=== PATIENT | female | born 1990 ===

== ENCOUNTER 2017-09-26 14:43 | Emergency (ER) | payer MEDICAID ==
[2015-12-29 09:08] VITALS: BMI 38.2
[2017-09-26 23:51] VITALS: BP 135/81; PULSE 103; RESP 18; TEMP 98.8; O2SAT 100
--- NOTE | 2017-09-27 09:12 | OBHP ---
Datetime: 09/26/2017 15:58 IP Adm Impression: Term, intrauterine IP Admit Plan: Observation/Evaluation Admit Comment, IP Provider: PT is 27 yo f 38.3wk uncomplicated , present to [facility] due t o vaginal bleed that started yesterday. Pt state that the bleeding started after she had a vaginal sw eep yesterday in her doctor office. Pt called the doctor today and she state that the bleeding persis t, and the doctor instruct her to go to [facility]. Pt have no other complain, she state she have irregular contraction but denies fluid loss, consistent contraction, abd pain, worsenes vaginal bleed. Pt ruma es fall/trauma, fever,chill, headache, chestpain, abd pain, dysuria or polyuria. Allergy none Med: none PMH: None PSh: none ob hx: 2 NVD at 36 and 37 wk, no complication social: no smoke/drink or use drugs ROS: All pertinent negative except HPI 16:00 Assessment: PT is 27 yo f 38.3wk uncomplicated , present to [facility] due to vaginal bleed that start ed yesterday. Pt is not acute distress vital wnl strip wnl Cervix 2 cm dialated, not in labor no contraction noted Plan Monitor for exacerbation monitor vitals and strip 17:53 Reassessment Pt is lying comfortable with no acute distress pt denies any symptoms Pt ready to go home Plan Pt will be discharged home Pt educated about vaginal bleed Encourage pt to come to ER if bleed exacerbate/notice gush of fluid/ increase contraction come to ER Case discussed with Dr Choudhary Writen by Martha PGY1 Pelvic Type - PN: Adequate Extremities - PN: Normal Abdomen - PN: Normal Back - PN: Not Done Breast - PN: Not Done Lungs - PN: Normal Heart - PN: Normal Thyroid - PN: Normal Neurologic - PN: Normal HEENT - PN: Normal General - PN: Normal Presentation-Admit: Vertex FHR - Baseline A Provider: 140 Comments, ACOG Physical Exam: PT is not acute distress, she is lying on bed comfortable Cardio: s1/s2 heard no extra heartsound lung: clear in all quadrant abd: bs +, nontender extremities: no pedal edema noted Pelvis: 2 cm dialated Gestation - Est Wks by US: 38.3 Vital Signs Provider: Reviewed; Within Normal Limits IP Chief Complaint: Vaginal bleeding NICHD Variability Prov Fetus A: Moderate 6-25bpm NICHD Accel Fetus A IP Provider: [id number] NICHD Decel Fetus A IP Provider: None Dilatation, Provider: 2 Genitourinary Exam: Not Done DTRs - PN: Not Done
== END 2017-09-26 17:50 | disposition home or self-care (01) ==
LOC: H.EROB2 14:43
DX: O47.1 False labor at or after 37 completed weeks of gestation (principal); O46.93 Antepartum hemorrhage, unspecified, third trimester; O26.93 Pregnancy related conditions, unspecified, third trimester; R10.2 Pelvic and perineal pain; Z3A.38 38 weeks gestation of pregnancy

== ENCOUNTER 2017-09-28 11:18 | Emergency (ER) | payer MEDICAID ==
[2015-12-29 09:08] VITALS: BMI 38.2
--- NOTE | 2017-09-30 07:45 | OBHP ---
Datetime: 09/28/2017 12:32 IP Adm Impression: Term, intrauterine IP Admit Plan: Observation/Evaluation Admit Comment, IP Provider: PT is 27 yo f 38.5wk uncomplicated , present to [facility] due t o vaginal bleed and contraction that started at 4:30 am. Pt stated that contraction were regular with back and pelvic pain, but inconsistent . Pt state that she came 2 days ago due vaginal bleed after doctor had done a vaginal sweep. Pt was checked she was 2cm dilated with no contraction, and was sent home. Pt have no other complain, Pt denies fluid loss, worsens vaginal bleed. Pt denies fall/trauma, fever, chill, headache, chest pain, dysuria or polyuria. Allergy none Med: none PMH: None PSh: none ob hx: 2 NVD at 36 and 37 wk, no complication social: no smoke/drink or use drugs ROS: All pertinent negative except HPI 12:20 Assessment: PT is 27 yo f 38.5wk uncomplicated , present to [facility] due to vaginal bleed and contra ction at 4:30 am. Pt is not acute distress vital wnl strip wnl Cervix 2 cm dilated, not in labor, very few contraction noted Plan Monitor for more consistent contraction monitor for water gush monitor vitals and strip 1:00 Reassessment Pt is not in acute distress Vital WNL Pt is not in active labor Cervix still high and 2 cm, minimal contraction present is not in distress, strip is reassuring Plan PT will be discharged home Discharge home Pt educated about Contraction, water gush, and vaginal bleed PT was advised if contraction increase or feel gush fluid, go to [facility] Case discussed with Dr Dc Writen by Martha PGY1 Addendum by Dr. Wallace: I have evaluated the patient independently and I agree with the above Pelvic Type - PN: Adequate Extremities - PN: Normal Abdomen - PN: Normal Breast - PN: Not Done Lungs - PN: Normal Heart - PN: Normal Thyroid - PN: Not Done Neurologic - PN: Normal HEENT - PN: Normal General - PN: Normal FHR - Baseline A Provider: 145 Comments, ACOG Physical Exam: Pt is lying comfortable in bed with no acute distress Cardia: s1, s2 heard no murmur or gallop no extra heart sound Lung : clear in all quadrant Abd: BS+, non tender Pelvic: dry hammond, high cervix, 2-3cm dilated, intact membrane. Gestation - Est Wks by US: 38.5 EGA AdmitDate IP: 38.5 Vital Signs Provider: Reviewed; Within Normal Limits IP Chief Complaint: Uterine contractions; Vaginal bleeding NICHD Variability Prov Fetus A: Moderate 6-25bpm NICHD Accel Fetus A IP Provider: [id number] FHR Category Provider Fetus A: Category I NICHD Decel Fetus A IP Provider: None Dilatation, Provider: 2 Genitourinary Exam: Not Done DTRs - PN: Not Done
[2017-09-30 11:46] VITALS: BP 121/83; PULSE 99
== END 2017-09-28 13:00 | disposition home or self-care (01) ==
LOC: H.EROB2 11:18
DX: O47.1 False labor at or after 37 completed weeks of gestation (principal); O26.93 Pregnancy related conditions, unspecified, third trimester; R10.2 Pelvic and perineal pain; O46.93 Antepartum hemorrhage, unspecified, third trimester; Z3A.38 38 weeks gestation of pregnancy

== ENCOUNTER 2017-09-30 23:13 | Inpatient (IN) | payer MEDICAID ==
[2017-10-01] MEDS ORDERED: Phenaphthazine-PH Test Paper VI ONE (00:08)
[2017-10-01 00:31] VITALS: BMI 39.8
[2017-10-01] MEDS ORDERED: Nalbuphine HCL 10 mg/ml Ampule IVP PRN (02:04)
[2017-10-01] MEDS ORDERED: Promethazine 25 MG in Sodium Chloride 0.9% 50 ML IVPB ONE (02:10)
[2017-10-01] MEDS: Lactated Ringer's 1,000 ML IV SCH ×2 (02:12→04:15)
[2017-10-01 04:01] LABS: BASO % 0.5 % (0.0-2.0); EOS # 0.1 K/uL (0.0-0.7); EOS % 1.1 % (0.0-4.0); HEMOGLOBIN 12.3 g/dL (12.0-16.0); LYMPH # 1.9 K/uL (1.0-4.3); LYMPH % 28.5 % (20.0-40.0); MEAN CELL VOLUME 91.7 fl (81.0-99.0); MEAN CORPUSCULAR HEMOGLOBIN 30.4 pg (27.0-31.0); MEAN CORPUSCULAR HGB CONC 33.1 g/dL (33.0-37.0); MEAN PLATELET VOLUME 11.1 fl (7.2-11.7); MONO # 0.6 K/uL (0.0-0.8); MONO % 9.1 % (0.0-10.0); NEUT # 4.1 K/uL (1.8-7.0); NEUT % 60.8 % (50.0-75.0); NRBC % 0.2 % (0.0-0.0); RBC 4.06 Mil/uL (3.80-5.20); RED CELL DISTRIBUTION WIDTH 13.8 % (11.5-14.5); WHITE BLOOD COUNT 6.7 K/uL (4.8-10.8)
[2017-10-01] MEDS ORDERED: Fentanyl/Bupivacaine HCl 250 ML EPI ONE (04:34)
--- NOTE | 2017-10-01 05:53 | OBADHP ---
Datetime: 10/01/2017 05:51 Admit Comment, IP Provider: OB Hospitalist Addendum: 27 yo at 39+2 wks c/p a lot of pain al l week received nubaine and phenergan and progressed and is now complete and pushing. Pt was admitte d to L_D. (ES) Abdomen - PN: Normal Back - PN: Normal Lungs - PN: Normal Heart - PN: Normal General - PN: Normal FHR - Baseline A Provider: 140s Amniotic Fluid Color, Provider: Bloody Membranes, Provider: Ruptured IP Chief Complaint: Uterine contractions NICHD Variability Prov Fetus A: Moderate 6-25bpm Dilatation, Provider: 10 Effacement, Provider: 100 Station, Provider: -1 Genitourinary Exam: Normal EGA AdmitDate IP: 39.1 IP Adm Impression: Term, intrauterine IP Admit Plan: Admit to unit; Initiate labor protocol Datetime: 10/01/2017 00:18 Comments, ACOG Physical Exam: GEN: NAD HEENT: Normocephalic, EOMI RESP: CTA bilateral CV: RRR,S1 S2 present , no murmurs noted ABD: Gravid, Soft, no tenderness to palpation. LE: No edema Pelvic Exam speculum examination: clear mucous noted in vaginal vault, sample obtain for fern test : no ferning was seen and nitrazine paper test negative. Vital Signs Provider: Reviewed; Within Normal Limits NICHD Accel Fetus A IP Provider: [id number] FHR Category Provider Fetus A: Category I (Annotations: Data stored by CPN on behalf of user) Datetime: 09/28/2017 12:32 Pelvic Type - PN: Adequate Extremities - PN: Normal Breast - PN: Not Done Thyroid - PN: Not Done Neurologic - PN: Normal HEENT - PN: Normal Gestation - Est Wks by US: 38.5 NICHD Decel Fetus A IP Provider: None DTRs - PN: Not Done Datetime: 09/26/2017 15:58 Presentation-Admit: Vertex
[2017-10-01] MEDS ORDERED: Oxytocin 30 UNIT 30 UNITS/500 ML BAG IV ONE (06:01)
[2017-10-01] MEDS ORDERED: Benzocaine/Menthol SPRAY TOP PRN ×2 (06:29→10:13)
--- NOTE | 2017-10-01 06:30 | OBHP ---
Datetime: 10/01/2017 05:51 IP Adm Impression: Term, intrauterine IP Admit Plan: Admit to unit; Initiate labor protocol Abdomen - PN: Normal Back - PN: Normal Lungs - PN: Normal Heart - PN: Normal General - PN: Normal FHR - Baseline A Provider: 140s Amniotic Fluid Color, Provider: Bloody Membranes, Provider: Ruptured EGA AdmitDate IP: 39.1 IP Indication for Induction: Not Applicable IP Chief Complaint: Uterine contractions NICHD Variability Prov Fetus A: Moderate 6-25bpm Dilatation, Provider: 10 Effacement, Provider: 100 Station, Provider: -1 Genitourinary Exam: Normal Datetime: 10/01/2017 00:18 Admit Comment, IP Provider: HPI: 27 y/o F with EGA 39.1 weeks, EDC 10/07/17, presents to the [facility] with c/o loss of fluid that she first noticed at 10 PM, patient also reports pelvic pain that koehler s been present all week but since yesterday has increased in intensity, is intermittent, with no radi ation, she associates this pain with uterine contractions that she also reports she is having since 1 0 PM. Patient denies vaginal bleeding, trauma, dizziness, KOEHLER, blurry vision, chest pain, SOB, N/V, dy suria. Patient reports movement recently. Patient reports normal course in this curre nt . ROS: Unremarkable, except as per HPI. OBGYN: Patient is , she reports previous normal pregnancies with x2, First delivery in 2014 and second 12/2015. Menarche: 8 y/o. patient reports hx of normal Pap smears. LMP: 12/31/16, BAILEE: 10/07/17. Provider: Dr Perez. PMHx: None FMHx: None Social Hx: Denies tobacco/Rec drugs/ETOH use. SurgHx: None Allergies: Synthroid MEDS: PNV Labs: HIV negative, HBsAg negative, GBS negative as per patient's report, Rubella +/immune, GC/CL nonreactive, RPR nonreactive as per patient's report, ABORh A+, Ab negative. Assessment and plan: 27 y/o with EGA 39.1 weeks term , with no reports of complications, pres enting to EDOB with c/o LOF, pelvic pain and uterine contactions for approxiamtely 2 to 3 hours. Impression Latent labor -Observation -Hydration IVF with LR bolus, then continue LR 125 ml /hr -VS monitoring - monitoring: FHR trace monitor - biophysical prof US This case was examined and disscused with attending Dr López in the room. Ramón Uriarte MD PGY1 OB Hospitalist Addendum: 27 yo at 39+2 wks c/p a lot of pain all week, received nubaine a nd phenergan and progressed and is now complete and is pushing. Pt was admitted to L_D. () Comments, ACOG Physical Exam: GEN: NAD HEENT: Normocephalic, EOMI RESP: CTA bilateral CV: RRR,S1 S2 present , no murmurs noted ABD: Gravid, Soft, no tenderness to palpation. LE: No edema Pelvic Exam speculum examination: clear mucous noted in vaginal vault, sample obtain for fern test : no ferning was seen and nitrazine paper test negative. Vital Signs Provider: Reviewed; Within Normal Limits NICHD Accel Fetus A IP Provider: 15X15 FHR Category Provider Fetus A: Category I (Annotations: Data stored by N on behalf of user)
--- NOTE | 2017-10-01 06:42 | OBDS ---
DELIVERY PERSONNEL Delivery Doctor: Clement López MD Driver Manager: Ma. Sherly Shabazz RN Anesthesiologist: Trev Marques Resident: Kalani MATERNAL INFORMATION Delivery Anesthesia: Epidural Medications in Delivery: Pitocin Estimated Blood Loss (ml): 50 Placenta Cultured: No Maternal Complications: None Provider Comments: Pt progressed to complete and pushed to deliver a viable male through allegra r fluid at 0601. Apgars 9 and 9. Wt 3095gms, 6#13. Infant placed on mother's abdomen. Cord doubly clamped and FOB cut the cord. Cord blood collected. Placenta delivered spontaneously intact w/ a 3 vc at 0616. Right labial laceration reapproximated w/ interrupted stitches of 3-0 rapide. Left iva urethral tear reapproximated w/ a single interrupted stitch of 3-0 rapide. Pt and baby tolerated the procedure well. EBL 50mL LABOR SUMMARY EDC: 10/07/2017 00:00 No. Babies in Womb: 1 Attempted: No Labor Anesthesia: Epidural LABOR INFORMATION Reason for Induction: Not Applicable Onset of Labor: 10/01/2017 03:00 Complete Dilatation: 10/01/2017 05:30 Oxytocin: N/A Group B Beta Strep: unknown Steroids Given: None Reason Steroids Not Administered: Not Applicable MEMBRANES Membranes Rupture Method: Spontaneous Rupture of Membranes: 10/01/2017 04:48 Length of Rupture (hrs): 1.22 Amniotic Fluid Color: Clear Amniotic Fluid Amount: Moderate Amniotic Fluid Odor: Normal STAGES OF LABOR Stage 1 hrs: 2 Stage 1 min: 30 Stage 2 hrs: 0 Stage 2 min: 31 Stage 3 hrs: 0 Stage 3 min: 15 Total Time in Labor hrs: 3 Total Time in Labor min: 16 VAGINAL DELIVERY Episiotomy: None Laceration Extension: First Degree Laceration Type: Vaginal; Periurethral Other Laceration: R first deg lac, L periurethral lac Laceration Repair: Yes Initial Vag Sponge Count: 15 Final Vag Sponge Count: 15 Initial Vag Sharps Count: 2 Final Vag Sharps Count: 2 Sponge Count Correct: Yes Sharps Count Correct: Yes Count Comment: count correct BABY A INFORMATION Delivery Date/Time: 10/01/2017 06:01 Method of Delivery: Vaginal Born in Route : No : N/A Forceps: N/A Vacuum Extraction: N/A Shoulder Dystocia : No SHOULDER DYSTOCIA BABY A Delivery Date/Time: 10/01/2017 06:01 PRESENTATION/POSITION BABY A Presentation: Cephalic PLACENTA INFORMATION BABY A Placenta Delivery Time : 10/01/2017 06:16 Placenta Method of Delivery: Spontaneous Placenta Status: Delivered SCORES BABY A Heart Rate 1 min: >100 bpm Resp Effort 1 min: Good Cry Reflex Irritability 1 min: Cough or Sneeze or Pulls Away Muscle Tone 1 min: Active Motion Color 1 min: Body [place], Extremities Blue Resuscitation Effort 1 min: Tactile Stimulation SCORE 1 MIN: 9 Heart Rate 5 min: >100 bpm Resp Effort 5 min: Good Cry Reflex Irritability 5 min: Cough or Sneeze or Pulls Away Muscle Tone 5 min: Active Motion Color 5 min: Body [place], Extremities Blue Resuscitation Effort 5 min: N/A SCORE 5 MIN: 9 INFORMATION BABY A Gestational Age at Delivery: 39.1 Gestational Status: Term Outcome : Liveborn Infant Condition : Stable Sex: Male IDENTIFICATION/MEDS BABY A ID Band Number: [id number] ID Band Location: Left Leg; Left Arm WEIGHT/LENGTH BABY A Infant Birthweight (gms): 3095 Weight (lb): 6 Infant Weight (oz): 13 CORD INFORMATION BABY A No. Cord Vessels: 3 Nuchal Cord : N/A Cord Blood Taken: Yes Suction: None ASSESSMENT BABY A Infant Complications: None Physical Findings at Delivery: Within Normal Limits Respirations: Appears Normal Wheel And Axle Inspector/ALS Called : No Care By: Phoebe Transferred To: Remains with Mother
--- NOTE | 2017-10-01 11:26 | US ---
Date of service: 10/01/2017 PROCEDURE: Biophysical profile. HISTORY: decreased movement and leaking clear fluid COMPARISON: None available. TECHNIQUE: Standard protocol for this study/examination. FINDINGS: FINDINGS: Biophysical profile score 8/8 Based on the followin. breathing movements: 2/2 2. Gross body movement: 2/2 3. tone: 2/2 4. Qualitative amniotic fluid index: 2/2 Calculated cardiac rate 149 beats per minute. Closed cervix 4.27 cm. Amniotic fluid index 12.75 cm. IMPRESSION: Biophysical profile score 8/8. Concordant results (preliminary interpretation) provided by [facility]. Procedure Completed: 00:48 Preliminary ([facility]) Report: Dictated and Authenticated: 01:44. Final Interpretation: 11:24. October 01, 2017.
[2017-10-01] MEDS ORDERED: Lansinoh for Breast Feeding Mothers TP ONE ×2 (22:56)
[2017-10-01] MEDS ORDERED: Lansinoh for Breast Feeding Mothers TP SCH (23:15)
[2017-10-02 06:44] LABS: BASO % 0.3 % (0.0-2.0); EOS # 0.1 K/uL (0.0-0.7); EOS % 1.4 % (0.0-4.0); HEMOGLOBIN 11.1 g/dL (12.0-16.0); LYMPH # 2.3 K/uL (1.0-4.3); LYMPH % 31.7 % (20.0-40.0); MEAN CELL VOLUME 91.2 fl (81.0-99.0); MEAN CORPUSCULAR HEMOGLOBIN 31.3 pg (27.0-31.0); MEAN CORPUSCULAR HGB CONC 34.3 g/dL (33.0-37.0); MEAN PLATELET VOLUME 10.2 fl (7.2-11.7); MONO # 0.7 K/uL (0.0-0.8); MONO % 9.3 % (0.0-10.0); NEUT # 4.2 K/uL (1.8-7.0); NEUT % 57.3 % (50.0-75.0); NRBC % 0.1 % (0.0-0.0); RBC 3.55 Mil/uL (3.80-5.20); RED CELL DISTRIBUTION WIDTH 13.7 % (11.5-14.5); WHITE BLOOD COUNT 7.3 K/uL (4.8-10.8)
--- NOTE | 2017-10-02 13:31 | OBPPN ---
Datetime: 10/02/2017 06:48 PP Pain Prov: Within normal limits PP Nausea Prov: Denies PP Flatus Prov: Yes PP BM Prov: No PP Breasts Prov: Normal PP Heart Prov: Normal PP Lungs Prov: Normal PP Abdomen/Uterus Prov: Normal PP Lochia Prov: Normal PP CVA Tenderness Prov: Not Done PP Extremities Prov: Normal PP Progress Prov: Normal PP Impression Prov: Normal progression PP Plan Prov: Continue present management PP Progress Note Prov: Patient seen and examined this AM, s/p today in her PPD1, she had an une ventful night, she is ambulating w/o difficulties or dizziness, tolerates oral food, reports lochia i s less than menses in volume, voiding well w/o blood noted in urine, passing gas per rectum, no BM ye t, reports and bottle-feeding baby. Denies KOEHLER, chest pain, SOB, abdominal pain, palpita tions, fever, N/V, or calf pain. Physical Exam GEN: NAD HEENT: Normocephalic, EOMI RESP: CTA b/l CV: RRR, S1 s2 present, no murmurs noted Abdomen: Soft, BS present, uterus firm below umbilicus level. LE: No edema, Lorri's negative. A/P 27 y/o now, with good progression today PPD1 -continue current post- management -VS monitoring -Motrin 600 mg PO Q6h prn pain -Encourage and ambulation -D/C planning Mannie Uriarte MD PGY1 ob attending addendum: pt seen _ examined by me. agree with above assessment and plan. pt desires circ for son. states he r other son was also circumcized informed consent obtained - pt understands is an elective, not medic ally indicated procedure Vital Signs Provider PP: Reviewed; Within Normal Limits
--- NOTE | 2017-10-03 11:32 | OBPPN ---
Datetime: 10/03/2017 07:01 PP Pain Prov: Within normal limits PP Nausea Prov: Denies PP Flatus Prov: Yes PP BM Prov: No PP Heart Prov: Normal PP Lungs Prov: Normal PP Abdomen/Uterus Prov: Normal PP Lochia Prov: Normal PP Extremities Prov: Normal PP Comments Phys Exam Prov: See progress note PP Impression Prov: Normal progression PP Plan Prov: Continue present management; Discharge PP Progress Note Prov: Patient seen and examined this morning, s/p today in her PPD2, she had a n uneventful night, she is ambulating w/o difficulties or dizziness, eating well, reports lochia is l ess than menses in volume, voiding well w/o blood noted in urine, passing gas per rectum, no BM yet, reports and bottle-feeding baby. Denies KOEHLER, chest pain, SOB, abdominal pain, palpitatio ns, fever, N/V, or calf pain. Physical Exam GEN: NAD HEENT: Normocephalic, EOMI RESP: CTA b/l CV: RRR, S1 s2 present, no murmurs noted Abdomen: Soft, BS present, uterus firm below umbilicus level. LE: No edema, Lorri's negative. A/P 27 y/o now, with good progression today PPD2 -Motrin 600 mg PO Q6h prn pain -Encourage and ambulation -D/C home today Mannie Uriarte MD PGY1 Attending addendum: I saw and examined the patient myself this morning. I reviewed the resident note above and agree w ith findings and management. DC home today. pt to schedule f/u appt with her OB provider Arline Castro MD Vital Signs Provider PP: Reviewed; Within Normal Limits
--- NOTE | 2017-10-03 11:34 | OBDCSUM ---
Datetime: 10/03/2017 07:22 Follow up at, Provider: Dr Perez Disch Instr Activity: Normal activity Disch Instr Diet: Regular Discharge Instructions, Provider: Routine instructions given Discharge Diagnosis, Provider: Term Delivered Discharge Time: 10/03/2017 09:30 Follow up in weeks, Provider: 4-6WKS Disch Referrals: None Contraception discussed, Prov: Yes Disch Activity Restrictions: No sexual activity; Nothing in vagina - [place], tampons, douche Discharge Comment, Provider: Patient is 27 y/o , s/p on 10/01/17 at 6:01 AM, delivered a baby boy, Wt 3095, 9/9. Patient is seen and examined this morning, on her PPD2, she is ambulati ng w/o difficulties or dizziness, eating well, reports lochia is less than menses in volume, voiding well w/o blood noted in urine, passing gas per rectum, no BM yet, reports and bottle-fe eding baby. Denies KOEHLER, chest pain, SOB, abdominal pain, palpitations, fever, N/V, or calf pain. [place] has had a good progress and is stable to be D/C home. Physical Exam GEN: NAD HEENT: Normocephalic, EOMI RESP: CTA b/l CV: RRR, S1 s2 present, no murmurs noted Abdomen: Soft, BS present, uterus firm below umbilicus level. LE: No edema, Lorri's negative. D/C instructions: -Encourage -Ibuprofen 600 mg PO 1 tab PO Q6h for pain PRN -Discharge today -Ambulate w/ caution, no heavy lifting, if bleeding, fever, abdominal pain without relief from Tyl enol or Ibuprofen go to ED - Instructions given for F/U with PMD visit within 4 to 6 weeks. Mannie Uriarte MD PGY1 Contraception after Delivery: Vasectomy; Undecided
[2017-10-04 00:17] VITALS: BP 139/86; PULSE 70; RESP 18; TEMP 98.1; O2SAT 98
== END 2017-10-03 20:16 | disposition home or self-care (01) | DRG 373 ==
LOC: H.EROB2 23:13 → H.L&D 10-01 04:21 → H.OB/GYN 10-01 08:15
PROVIDERS: ADMIT Obstetrics & Gynecology; ATTEND Obstetrics & Gynecology
PROC: 10E0XZZ Delivery of Products of Conception, External Approach (ICD-10-PCS; principal; 2017-10-01)
PROC: 0UQMXZZ Repair Vulva, External Approach (ICD-10-PCS; 2017-10-01)
PROC: 0HQ9XZZ Repair Perineum Skin, External Approach (ICD-10-PCS; 2017-10-01)
PROC: 4A1HXCZ Monitoring of Products of Conception, Cardiac Rate, External Approach (ICD-10-PCS; 2017-10-01)
DX: O70.0 First degree perineal laceration during delivery (principal); O71.82 Other specified trauma to perineum and vulva; Z37.0 Single live birth; Z3A.39 39 weeks gestation of pregnancy